=== PATIENT | male | born 1940 | race Caucasian/White ===

== ENCOUNTER → 2019-04-12 10:02 | Outpatient (REF) | payer MEDICARE, SELFPAY | LOC: ANHLAB 10:02 | PROVIDERS: Visit Provider Nurse Practitioner Family | DX: C44.321 Squamous cell carcinoma of skin of nose (principal) | CPT/HCPCS: 88305; 88331 ==

== ENCOUNTER → 2021-02-05 11:50 | Outpatient (CLI) | payer MEDICARE, SELFPAY ==
--- NOTE | ~2021-02-05 | MR_ITS ---
EXAMINATION: MR pelvis wo/w con DATE: 02/05/2021 13:05 INDICATION: Neoplasm of uncertain behavior of bone. Right hip pain. TECHNIQUE: Magnetic resonance imaging (MRI) of the pelvis was performed without and with 13 mL MultiH ance intravenous contrast. Sequences included axial, coronal, and sagittal T1-weighted FSE and T2-mildred ghted FS FSE, axial T1-weighted FS FSE, and postcontrast axial, sagittal, and coronal T1-weighted FS FSE. COMPARISON: None. FINDINGS: The prostate is moderately enlarged. There is diverticulosis of the colon without evidence of diverti culitis. Bone alignment is normal. No fracture. There is mild osteoarthritis of the hips. 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 There is severe radha mbar spondylosis. There is mild bilateral trochanteric bursitis. IMPRESSION: 1. No malignancy identified. 2. Mild osteoarthritis of the hips. 3. Moderately enlarged prostate. Reviewed, dictated and finalized at location A. IN[facility]
[2021-02-05 12:24] LABS: Estimated Glomerular Filt Rate > 60
== END ==
PROVIDERS: PCP Family Medicine; Visit Provider Family Medicine
DX: D48.0 Neoplasm of uncertain behavior of bone and articular cartilage (principal); M16.0 Bilateral primary osteoarthritis of hip; N40.0 Benign prostatic hyperplasia without lower urinary tract symptoms
CPT/HCPCS: 72197; A9577